=== PATIENT | male | born 1960 | race Caucasian/White ===

== ENCOUNTER 2025-01-21 06:28 | Day surgery (SDC) | payer OTHER ==
[~2025-01-21] VITALS: Ht 162.6 cm; Wt 84.0 kg
[2025-01-21] MEDS ORDERED: SODIUM CHLORIDE 0.9% 1,000 ML ONE (06:34)
[2025-01-21] MEDS: SODIUM CHLORIDE 0.9% 1,000 ML IV ONE (07:36)
[2025-01-21] MEDS ORDERED: FentaNYL CITRATE PF 100 MCG/2 ML VIAL ONE (07:40)
[2025-01-21 07:41] LABS: GLUCOMETER DEV NAME(LOC) SDS.; GLUCOSE,POINT OF CARE 178 MG/DL (70-110)
[2025-01-21] MEDS ORDERED: MIDAZOLAM HCL 2 MG/2 ML VIAL ONE (07:41)
[2025-01-21] MEDS ORDERED: BUME1TAB50 PO (08:02)
[2025-01-21] MEDS ORDERED: PHOSLOC PO (08:02)
[2025-01-21] MEDS ORDERED: ATOR10TA PO (08:02)
[2025-01-21] MEDS ORDERED: CHOL200059 PO (08:02)
[2025-01-21] MEDS ORDERED: CARV12 PO (08:02)
[2025-01-21] MEDS ORDERED: PROP1DRO4 (08:02)
[2025-01-21] MEDS ORDERED: NIFE-129 PO (08:02)
[2025-01-21] MEDS ORDERED: BRIM5DRO28 OU (08:02)
[2025-01-21] MEDS ORDERED: INSU100I3 (08:02)
[2025-01-21 09:25] VITALS: PULSE 65; RESP 18; O2SAT 100
[2025-01-21] MEDS ORDERED: BENZOCAINE 20% 50 MCG/SPRAY 57 GM ONE (12:00)
[2025-01-21] MEDS ORDERED: LIDOCAINE 4% 50 ML SOLUTION ONE (12:00)
[2025-01-21] MEDS ORDERED: ALBUTEROL SULFATE 2.5 MG/0.5 ML NEB SOLUTION NEB ONE (12:00)
[2025-01-21] MEDS ORDERED: LIDOCAINE 2% 11 ML JELLY ONE (12:00)
== END 2025-01-21 12:40 | disposition home or self-care (01) ==
LOC: SDS 06:28
PROVIDERS: ATTEND Internal Medicine Critical Care Medicine
DX: J38.4 Edema of larynx (principal); B37.0 Candidal stomatitis; R05.3 Chronic cough; R91.8 Other nonspecific abnormal finding of lung field
CPT/HCPCS: 31623; 82962; 87206; 87101; 87220; 87070; 31624; 71045; 87015; J3010; J2250; J2919; J7030; J7613; Z7610